=== PATIENT | female | born 1980 | race African-American/Black ===

== ENCOUNTER 2016-11-15 23:44 | Emergency (ER) | payer SELFPAY ==
[~2016-11-15] VITALS: Ht 165.1 cm; Wt 58.1 kg
[2016-11-15 23:55] VITALS: BP 125/55
--- NOTE | 2016-11-16 00:21 | PHYS DOC ---
Past Medical History Past Medical History: No Pertinent History Past Surgical History: No Surgical History Alcohol Use: None Drug Use: None Adult General Chief Complaint Chief Complaint: EYE PROBLEMS HPI HPI Patient is a 36 year old female who presents with painful swelling to right eyelid. Reports symptoms x 3 days, pain & swelling without vision changes, eye drainage, eye redness or itching. Denies fevers/chills. Doesn't wear glasses or contacts. Has been applying warm compresses. Tried using over the counter sty medication without relief. Review of Systems Review of Systems Constitutional: Denies fever or chills Eyes: Denies change in visual acuity, reports eyelid swelling. HENT: Denies nasal congestion or sore throat Respiratory: Denies cough Musculoskeletal: Denies back pain or joint pain Integument: Denies rash Neurologic: Denies headache Allergies Allergies Allergies Coded Allergies Type Severity Reaction Last Updated Verified No Known Drug Allergies 11/15/16 No Physical Exam Physical Exam Constitutional: Well developed, well nourished, no acute distress, non-toxic appearance. HENT: Normocephalic, atraumatic, bilateral external ears normal, oropharynx moist, nose normal. Eyes: PERRLA, EOMI, conjunctiva normal, no discharge. right eye sty is present , no periorbital erythema/warmth/swelling, no proptosis or pain with eye movements. Cardiovascular: no edema. Lungs & Thorax: no respiratory distress. Abdomen: nondistended. Skin: Warm, dry, no erythema, no rash. Extremities: No deformity Neurologic: Alert and oriented X 3 Current Patient Data Vital Signs Vital Signs Date Time Temp Pulse Resp B/P (MAP) Pulse Ox O2 Delivery O2 Flow Rate FiO2 11/15/16 23:55 98.1 64 16 98 Room Air 98.1 EKG EKG [] Radiology/Procedures Radiology/Procedures [] Course & Med Decision Making Course & Med Decision Making Pertinent Labs and Imaging studies reviewed. (See chart for details) The patient presents with right eye sty. No sign of periorbital or orbital cellulitis. Recommend continue warm compresses, take tylenol or ibuprofen for pain. Follow up as needed with Dr. Quintero in the eye clinic. Come back for loss of vision, sign of cellulitis, any otherwise worsening condition. Discharged home in stable condition. [] Dragon Disclaimer Dragon Disclaimer This electronic medical record was generated, in whole or in part, using a voice recognition dictation system. Departure Departure Impression: Primary Impression: Sty Disposition: 01 HOME, SELF-CARE Condition: STABLE Referrals: CHARITY SUTTON MD (PCP) Dahlia QUINTERO MD Patient Instructions: Sty Additional Instructions: You seen in the emergency department today for stye. Please continue to apply warm compresses several times daily. Take Tylenol or ibuprofen for pain. Follow- up as needed with Dr. Quintero in the eye clinic if not improving. Return to the emergency department for hot/red/swollen skin spreading outward from the eyelid, fevers, vision changes, any otherwise worsening condition. SOHA DILLARD MD November 16, 2016 00:21
== END 2016-11-16 00:36 | disposition home or self-care (01) ==
LOC: ER 23:44
DX: H00.013 Hordeolum externum right eye, unspecified eyelid (principal)
CPT/HCPCS: 99281

== ENCOUNTER 2016-12-02 00:23 | Emergency (ER) | payer OTHER ==
[~2016-12-02] VITALS: Ht 165.1 cm; Wt 58.1 kg
[2016-12-02 01:17] LABS: BILIRUBIN,URINE NEGATIVE (NEG); GLUCOSE,URINE NEGATIVE (NEG); NITRITE,URINE NEGATIVE (NEG); PROTEIN,URINE NEGATIVE (NEG-TRACE); UROBILINOGEN,URINE 0.2 mg/dL (0.2 mg/dL)
[2016-12-02 01:27] LABS: BACTERIA,URINE 0 /HPF (0-FEW); SQUAMOUS EPITHELIAL CELL,UR FEW /LPF
[2016-12-02] MEDS ORDERED: IV NORMAL SALINE 1000ML BAG 1,000 ML IV SCH (01:39)
[2016-12-02] MEDS ORDERED: MORPHINE SULFATE 4 MG/ML DISP.SYRIN. IV/SQ PRN (01:45)
--- NOTE | 2016-12-02 01:48 | PHYS DOC ---
Past Medical History Past Medical History: No Pertinent History Past Surgical History: No Surgical History Alcohol Use: None Drug Use: Marijuana Adult General Chief Complaint Chief Complaint: ABDOMINAL PAIN HPI HPI Patient is a 36 year old female who presents with complaint of abdominal pain. Patient has had symptoms for the past 2 days. Patient states that her pain is in her left upper quadrant and radiates towards her left flank. Patient also states that she has been having several episodes of vomiting over the past 2 days. Patient states that she is having difficulty keeping down both solids and liquids. Patient notes that she has had increase in urinary frequency. Patient denies any history of similar symptoms. Patient denies any known sick contacts. Patient has not had any associated fever with her symptoms. Patient rates her pain as 7 out of 10. Patient states that the symptoms seem to worsen when she tries to eat. Review of Systems Review of Systems Constitutional: Denies fever or chills [] Eyes: Denies change in visual acuity, redness, or eye pain [] HENT: Denies nasal congestion or sore throat [] Respiratory: Denies cough or shortness of breath [] Cardiovascular: No additional information not addressed in HPI [] GI: Abdominal pain, nausea, vomiting, denies bloody stools or diarrhea [] : Increased urinary frequency, denies dysuria or hematuria [] Musculoskeletal: Denies back pain or joint pain [] Integument: Denies rash or skin lesions [] Neurologic: Denies headache, focal weakness or sensory changes [] Endocrine: Denies polyuria or polydipsia [] Current Medications Current Medications Current Medications Medications (Trade) Dose Ordered Sig/Rupa Start Time Stop Time Status Last Admin Dose Admin Ceftriaxone Sodium 50 ml @ 100 mls/hr 1X ONCE 12/02/16 02:00 12/02/16 02:29 DC 12/02/16 02:06 100 MLS/HR Famotidine (Pepcid) 20 mg 1X ONCE 12/02/16 02:00 12/02/16 02:01 DC 12/02/16 02:06 20 MG Morphine Sulfate 4 mg PRN Q15MIN PRN 12/02/16 01:45 12/02/16 03:27 DC 12/02/16 02:06 4 MG Ondansetron HCl (Zofran) 4 mg 1X ONCE 12/02/16 02:00 12/02/16 02:01 DC 12/02/16 02:06 4 MG Potassium Chloride (Klor-Con) 20 meq STK-MED ONCE 12/02/16 03:17 12/02/16 03:18 DC Sodium Chloride 1,000 ml @ 1,000 mls/hr Q1H 12/02/16 01:39 12/02/16 02:38 DC 12/02/16 02:07 1,000 MLS/HR Allergies Allergies Allergies Coded Allergies Type Severity Reaction Last Updated Verified No Known Drug Allergies 11/15/16 No Physical Exam Physical Exam Constitutional: Alert, afebrile, appears in mild to moderate discomfort. [] HENT: Normocephalic, atraumatic, bilateral external ears normal, oropharynx moist, no oral exudates, nose normal. [] Eyes: PERRLA, EOMI, conjunctiva normal, no discharge. [] Neck: Normal range of motion, no tenderness, supple, no stridor. [] Cardiovascular:Heart rate regular rhythm, no murmur [] Lungs & Thorax: Bilateral breath sounds clear to auscultation [] Abdomen: Bowel sounds normal, soft, left upper quadrant tenderness to palpation , no masses, no pulsatile masses. [] Skin: Warm, dry, no erythema, no rash. [] Back: No midline tenderness, left CVA tenderness is present, no flank ecchymosis [] Extremities: No tenderness, no cyanosis, no clubbing, ROM intact, no edema. [] Neurologic: Alert and oriented X 3, normal motor function, normal sensory function, no focal deficits noted. [] Current Patient Data Vital Signs Vital Signs Date Time Temp Pulse Resp B/P (MAP) Pulse Ox O2 Delivery O2 Flow Rate FiO2 12/02/16 03:25 50 20 132/74 (93) 98 Room Air 12/02/16 01:10 98.2 98.2 Lab Values Laboratory Tests Test 12/02/16 00:14 12/02/16 01:10 POC Urine HCG, Qualitative Hcg negative (Negative) White Blood Count 11.9 x10^3/uL (4.0-11.0) H Red Blood Count 4.48 x10^6/uL (3.50-5.40) Hemoglobin 14.1 g/dL (12.0-15.5) Hematocrit 42.2 % (36.0-47.0) Mean Corpuscular Volume 94 fL (79-100) Mean Corpuscular Hemoglobin 32 pg (25-35) Mean Corpuscular Hemoglobin Concent 34 g/dL (31-37) Red Cell Distribution Width 12.3 % (11.5-14.5) Platelet Count 220 x10^3/uL (140-400) Neutrophils (%) (Auto) 71 % (31-73) Lymphocytes (%) (Auto) 19 % (24-48) L Monocytes (%) (Auto) 9 % (0-9) Eosinophils (%) (Auto) 0 % (0-3) Basophils (%) (Auto) 0 % (0-3) Neutrophils # (Auto) 8.5 x10^3uL (1.8-7.7) H Lymphocytes # (Auto) 2.3 x10^3/uL (1.0-4.8) Monocytes # (Auto) 1.1 x10^3/uL (0.0-1.1) Eosinophils # (Auto) 0.0 x10^3/uL (0.0-0.7) Basophils # (Auto) 0.1 x10^3/uL (0.0-0.2) Urine Collection Type Unknown Urine Color Yellow Urine Clarity Clear Urine pH 7.0 Urine Specific [place] <=1.005 Urine Protein Negative mg/dL (NEG-TRACE) Urine Glucose (UA) Negative mg/dL (NEG) Urine Ketones (Stick) Negative mg/dL (NEG) Urine Blood Large (NEG) Urine Nitrite Negative (NEG) Urine Bilirubin Negative (NEG) Urine Urobilinogen Dipstick 0.2 mg/dL (0.2 mg/dL) Urine Leukocyte Esterase Small (NEG) Urine RBC 6-10 /HPF (0-2) Urine WBC 11-20 /HPF (0-4) Urine Squamous Epithelial Cells Few /LPF Urine Bacteria 0 /HPF (0-FEW) Urine Mucus Slight /LPF Sodium Level 137 mmol/L (136-145) Potassium Level 3.1 mmol/L (3.5-5.1) L Chloride Level 103 mmol/L (98-107) Carbon Dioxide Level 24 mmol/L (21-32) Anion Gap 10 (6-14) Blood Urea Nitrogen 6 mg/dL (7-20) L Creatinine 0.8 mg/dL (0.6-1.0) Estimated GFR (Cockcroft-Gault) 98.2 BUN/Creatinine Ratio 8 (6-20) Glucose Level 102 mg/dL (70-99) H Calcium Level 9.3 mg/dL (8.5-10.1) Total Bilirubin 0.7 mg/dL (0.2-1.0) Aspartate Amino Transferase (AST) 14 U/L (15-37) L Alanine Aminotransferase (ALT) 18 U/L (14-59) Alkaline Phosphatase 54 U/L (46-116) Total Protein 7.7 g/dL (6.4-8.2) Albumin 3.9 g/dL (3.4-5.0) Albumin/Globulin Ratio 1.0 (1.0-1.7) Lipase 230 U/L (73-393) Laboratory Tests 12/02/16 01:10 Laboratory Tests 12/02/16 01:10 EKG EKG Not performed [] Radiology/Procedures Radiology/Procedures Not performed [] Course & Med Decision Making Course & Med Decision Making Pertinent Labs and Imaging studies reviewed. (See chart for details) Patient was treated with IV fluids, Zofran, Pepcid, fentanyl, GI cocktail. Patient found have evidence of urinary tract infection. Given patient's left flank pain, patient has clinical signs consistent with acute pyelonephritis. Patient started on IV Rocephin in the emergency department. On reevaluation, patient states her symptoms have significantly improved. Patient is able to tolerate oral intake without difficulty at this time. Patient will be treated with Vantin for 10 day course for treatment of acute pyelonephritis. Recommended follow-up in 3-4 days with patient's primary doctor. Advised return emergency department for any worsening symptoms. Patient voiced understanding and in agreement with treatment plan. Dragon Disclaimer Dragon Disclaimer This electronic medical record was generated, in whole or in part, using a voice recognition dictation system. Departure Departure Impression: Primary Impression: Acute pyelonephritis Disposition: 01 HOME, SELF-CARE Condition: IMPROVED Referrals: CHARITY SUTTON MD (PCP) Patient Instructions: Pyelonephritis, Adult Additional Instructions: Follow-up with your primary doctor in 3-4 days. Return to the emergency department for any worsening symptoms Scripts Hydrocodone/Apap 5-325 (NORCO 5-325 TABLET) 1 Each Tablet 1-2 TAB PO Q4-6HRS, #15 TAB Prov: HOWARD COON MD 12/02/16 Famotidine (PEPCID) 20 Mg Tablet 20 MG PO BID, #30 TAB Prov: HOWARD COON MD 12/02/16 Ondansetron (ZOFRAN ODT) 4 Mg Tab.rapdis 4 MG PO Q8HRS Y for NAUSEA/VOMITING, #20 TAB Prov: HOWARD COON MD 12/02/16 Cefpodoxime Proxetil (CEFPODOXIME PROXETIL) 200 Mg Tablet 1 TAB PO BID, #20 TAB Prov: HOWARD COON MD 12/02/16 HOWARD COON MD December 02, 2016 01:48
[2016-12-02 02:00] LABS: BASO # 0.1 x10^3/uL (0.0-0.2); BASO % 0 % (0-3); EOS % 0 % (0-3); HEMATOCRIT 42.2 % (36.0-47.0); HEMOGLOBIN 14.1 g/dL (12.0-15.5); LYMPH # 2.3 x10^3/uL (1.0-4.8); LYMPH % 19 % (24-48); MEAN CORPUSCULAR HEMOGLOBIN 32 pg (25-35); MEAN CORPUSCULAR HGB CONC 34 g/dL (31-37); MEAN CORPUSCULAR VOLUME 94 fL (79-100); MONO % 9 % (0-9); NEUT % 71 % (31-73); PLATELET COUNT 220 x10^3/uL (140-400); RED BLOOD COUNT 4.48 x10^6/uL (3.50-5.40); RED CELL DISTRIBUTION WIDTH 12.3 % (11.5-14.5); WHITE BLOOD COUNT 11.9 x10^3/uL (4.0-11.0)
[2016-12-02] MEDS ORDERED: FAMOTIDINE 20 MG/2 ML VIAL IVP ONE (02:00)
[2016-12-02] MEDS ORDERED: ONDANSETRON PF 4 MG/2 ML VIAL. IV ONE (02:00)
[2016-12-02 02:09] LABS: CALCIUM 9.3 mg/dL (8.5-10.1); CREATININE 0.8 mg/dL (0.6-1.0); GFR 98.2; POTASSIUM 3.1 mmol/L (3.5-5.1)
[2016-12-02 02:15] LABS: ALBUMIN 3.9 g/dL (3.4-5.0); TOTAL BILIRUBIN 0.7 mg/dL (0.2-1.0); TOTAL PROTEIN 7.7 g/dL (6.4-8.2)
[2016-12-02] MEDS ORDERED: HYDR-971 PO (03:00)
[2016-12-02] MEDS ORDERED: CEFP200T PO (03:00)
[2016-12-02] MEDS ORDERED: FAMO-63 PO (03:00)
[2016-12-02] MEDS ORDERED: ONDA4TAB10 PO (03:00)
[2016-12-02] MEDS ORDERED: POTASSIUM CHLORIDE 20 MEQ TABLET.ER. PO ONE (03:17)
[2016-12-02 03:25] VITALS: BP 132/74
== END 2016-12-02 03:27 | disposition home or self-care (01) ==
LOC: ER 00:23
DX: N10 Acute pyelonephritis (principal); F12.10 Cannabis abuse, uncomplicated
CPT/HCPCS: 36415; 80053; 81001; 83690; 84703; 85027; 87086; 96361; 96365; 96375; 99284; J0690; J2270; J2405; J7030; S0028; 81025

== ENCOUNTER 2016-12-02 17:59 | Emergency (ER) | payer OTHER ==
[2016-12-02 03:25] VITALS: BP 132/74
[~2016-12-02 17:59] MED LIST: CEFP200T PO; FAMO-63 PO; HYDR-971 PO; ONDA4TAB10 PO
== END 2016-12-02 18:10 | disposition left against medical advice (07) ==
LOC: ER 17:59
DX: O26.90 Pregnancy related conditions, unspecified, unspecified trimester (principal); Z53.21 Procedure and treatment not carried out due to patient leaving prior to being seen by health care provider

== ENCOUNTER 2016-12-10 20:37 | Emergency (ER) | payer OTHER ==
[2016-12-10 20:40] VITALS: BP 128/58
[2016-12-10 21:33] LABS: BILIRUBIN,URINE NEGATIVE (NEG); GLUCOSE,URINE NEGATIVE (NEG); NITRITE,URINE NEGATIVE (NEG); PH,URINE 7.5; PROTEIN,URINE 30 mg/dL (NEG-TRACE); UROBILINOGEN,URINE 0.2 mg/dL (0.2 mg/dL)
[2016-12-10 21:39] LABS: BACTERIA,URINE 0 /HPF (0-FEW); RBC,URINE OCC /HPF (0-2); SQUAMOUS EPITHELIAL CELL,UR OCC /LPF
[2016-12-10 21:47] LABS: CALCIUM 9.5 mg/dL (8.5-10.1); CREATININE 0.7 mg/dL (0.6-1.0); GFR 114.6; POTASSIUM 3.8 mmol/L (3.5-5.1)
--- NOTE | 2016-12-10 21:47 | PHYS DOC ---
Past Medical History Past Medical History: No Pertinent History, UTI Past Surgical History: No Surgical History Alcohol Use: None Drug Use: Marijuana Adult General Chief Complaint Chief Complaint: ABDOMINAL PAIN HPI HPI Patient is a 36 year old female who presents with nausea and vomiting followed by epigastric abdominal discomfort that started today. States her pain is worse around the times that her nausea is worse, but is otherwise constant and achy and burning. She has nonbloody nonbilious multiple times today. Symptoms started spontaneously. Denies food association. She denies diarrhea, bloody or dark stools. She has a normal bowel movement today. She denies back pain, dysuria, hematuria, fever or chills, chest pain, cough, dyspnea, sick contacts, recent travel. She was seen here approximately 1 week ago and treated for pyelonephritis. She did get better after the illness for a few days. Urine culture grew mixed urogenital gilma. Review of Systems Review of Systems Constitutional: Denies fever or chills [] Eyes: Denies change in visual acuity, redness, or eye pain [] HENT: Denies nasal congestion or sore throat [] Respiratory: Denies cough or shortness of breath [] Cardiovascular: No additional information not addressed in HPI [] GI: Denies bloody stools or diarrhea [] : Denies dysuria or hematuria [] Musculoskeletal: Denies back pain or joint pain [] Integument: Denies rash or skin lesions [] Neurologic: Denies headache, focal weakness or sensory changes [] Endocrine: Denies polyuria or polydipsia [] Current Medications Current Medications Current Medications Medications (Trade) Dose Ordered Sig/[facility] Start Time Stop Time Status Last Admin Dose Admin Famotidine (Pepcid) 20 mg 1X ONCE 12/10/16 22:00 12/10/16 22:01 DC 12/10/16 21:48 20 MG Fentanyl Citrate (Fentanyl 2ml Vial) 50 mcg 1X ONCE 12/10/16 22:00 12/10/16 22:01 DC 12/10/16 21:49 50 MCG Multi-Ingredient Mouthwash/Gargle (Gi Cocktail Single Dose) 15 ml 1X ONCE 12/10/16 22:00 12/10/16 22:01 DC 12/10/16 21:49 15 ML Ondansetron HCl (Zofran) 4 mg 1X ONCE 12/10/16 22:00 12/10/16 22:01 DC 12/10/16 21:47 4 MG Sodium Chloride 1,000 ml @ 1,000 mls/hr Q1H 12/10/16 22:00 12/10/16 22:59 12/10/16 21:47 1,000 MLS/HR Allergies Allergies Allergies Coded Allergies Type Severity Reaction Last Updated Verified No Known Drug Allergies 11/15/16 No Physical Exam Physical Exam Constitutional: Well developed, well nourished, no acute distress, non-toxic appearance. [] HENT: Normocephalic, atraumatic, bilateral external ears normal, oropharynx moist, nose normal. [] Eyes: PERRLA, EOMI. [] Neck: Normal range of motion, supple. [] Cardiovascular:Heart rate regular rhythm [] Lungs & Thorax: Bilateral breath sounds clear to auscultation [] Abdomen: Bowel sounds normal, soft, mild epigastric tenderness, no guarding or rebound. [] Skin: Warm, dry, no erythema, no rash. [] Back: No tenderness, no CVA tenderness. [] Extremities: No tenderness, ROM intact, no edema. [] Neurologic: Alert and oriented X 3, normal motor function, normal sensory function, no focal deficits noted. [] Psychologic: Affect normal, judgement normal, mood normal. [] Current Patient Data Vital Signs Vital Signs Date Time Temp Pulse Resp B/P (MAP) Pulse Ox O2 Delivery O2 Flow Rate FiO2 12/10/16 21:49 18 Room Air 12/10/16 20:40 97.6 48 128/58 (81) 100 97.6 Lab Values Laboratory Tests Test 12/10/16 20:40 12/10/16 20:50 Urine Color Yellow Urine Clarity Clear Urine pH 7.5 Urine Specific [place] 1.025 Urine Protein 30 mg/dL (NEG-TRACE) Urine Glucose (UA) Negative mg/dL (NEG) Urine Ketones (Stick) >=80 mg/dL (NEG) Urine Blood Negative (NEG) Urine Nitrite Negative (NEG) Urine Bilirubin Negative (NEG) Urine Urobilinogen Dipstick 0.2 mg/dL (0.2 mg/dL) Urine Leukocyte Esterase Moderate (NEG) Urine RBC Occ /HPF (0-2) Urine WBC 11-20 /HPF (0-4) Urine Squamous Epithelial Cells Occ /LPF Urine Transitional Epithelial Cells Occ /LPF Urine Bacteria 0 /HPF (0-FEW) Urine Mucus Slight /LPF Sodium Level 140 mmol/L (136-145) Potassium Level 3.8 mmol/L (3.5-5.1) Chloride Level 102 mmol/L (98-107) Carbon Dioxide Level 22 mmol/L (21-32) Anion Gap 16 (6-14) H Blood Urea Nitrogen 11 mg/dL (7-20) Creatinine 0.7 mg/dL (0.6-1.0) Estimated GFR (Cockcroft-Gault) 114.6 BUN/Creatinine Ratio 16 (6-20) Glucose Level 109 mg/dL (70-99) H Calcium Level 9.5 mg/dL (8.5-10.1) Total Bilirubin 0.6 mg/dL (0.2-1.0) Aspartate Amino Transferase (AST) 17 U/L (15-37) Alanine Aminotransferase (ALT) 20 U/L (14-59) Alkaline Phosphatase 57 U/L (46-116) Total Protein 7.9 g/dL (6.4-8.2) Albumin 4.1 g/dL (3.4-5.0) Albumin/Globulin Ratio 1.1 (1.0-1.7) Lipase 130 U/L (73-393) Laboratory Tests 12/10/16 20:50 Course & Med Decision Making Course & Med Decision Making Pertinent Labs and Imaging studies reviewed. (See chart for details) Other than ketonuria, laboratory evaluation is unremarkable. She is tolerating oral intake and her symptoms are improved. Return precautions given. She understands and agrees with plan. Dragon Disclaimer Dragon Disclaimer This electronic medical record was generated, in whole or in part, using a voice recognition dictation system. Departure Departure Impression: Primary Impression: Nausea and vomiting Additional Impression: Epigastric abdominal pain Disposition: 01 HOME, SELF-CARE Condition: STABLE Referrals: CHARITY SUTTON MD (PCP) Patient Instructions: Nausea and Vomiting, [id number] Additional Instructions: Take Zofran as needed for nausea. Take famotidine for likely gastritis. Follow- up with your primary care doctor within one week. Return for any concerns. Scripts Ondansetron (ZOFRAN ODT) 4 Mg Tab.rapdis 1 TAB SL Q8HRS Y for NAUSEA, #10 TAB Prov: Jv KIMBROUGH MD 12/10/16 Famotidine (FAMOTIDINE) 20 Mg Tablet 20 MG PO BID, #30 TAB Prov: Jv KIMBROUGH MD 12/10/16 Problem Qualifiers Primary Impression: Nausea and vomiting Vomiting type: unspecified Vomiting Intractability: non-intractable Qualified Codes: R11.2 - Nausea with vomiting, unspecified Jv KIMBROUGH MD Dec 10, 2016 21:47
[2016-12-10 21:52] LABS: ALBUMIN 4.1 g/dL (3.4-5.0); ALBUMIN/GLOBULIN RATIO 1.1 (1.0-1.7); TOTAL BILIRUBIN 0.6 mg/dL (0.2-1.0); TOTAL PROTEIN 7.9 g/dL (6.4-8.2)
[2016-12-10] MEDS ORDERED: IV NORMAL SALINE 1000ML BAG 1,000 ML IV SCH (22:00)
[2016-12-10] MEDS ORDERED: LIDO:MAALOX:DONNATAL 1:1:1 15 ML SINGLE DOSE SWSW ONE (22:00)
[2016-12-10] MEDS ORDERED: FAMOTIDINE 20 MG/2 ML VIAL IVP ONE (22:00)
[2016-12-10] MEDS ORDERED: ONDANSETRON PF 4 MG/2 ML VIAL. IV ONE (22:00)
[2016-12-10] MEDS ORDERED: fentaNYL PF VIAL 100 MCG/2 ML VIAL IV ONE (22:00)
[2016-12-10] MEDS ORDERED: FAMO20TA5 PO (22:16)
[2016-12-10] MEDS ORDERED: ONDA4TAB10 SL (22:16)
== END 2016-12-10 23:09 | disposition home or self-care (01) ==
LOC: ER 20:37
DX: R11.2 Nausea with vomiting, unspecified (principal); R10.13 Epigastric pain; F12.10 Cannabis abuse, uncomplicated; Z79.899 Other long term (current) drug therapy
CPT/HCPCS: 36415; 80053; 81001; 81025; 83690; 87086; 96361; 96374; 96375; 99285; J2405; J3010; J7030; S0028

== ENCOUNTER 2016-12-29 00:25 | Emergency (ER) | payer OTHER ==
[~2016-12-29] VITALS: Ht 165.1 cm; Wt 56.7 kg
[~2016-12-29 00:25] MED LIST changes: +FAMO20TA5 PO; +ONDA4TAB10 SL
[2016-12-29 01:21] VITALS: BP 115/61
[2016-12-29] MEDS ORDERED: HYDR-2758 PO (02:27)
[2016-12-29] MEDS ORDERED: PENI500T PO (02:27)
--- NOTE | 2016-12-29 02:28 | PHYS DOC ---
Past Medical History Past Medical History: No Pertinent History, UTI Past Surgical History: No Surgical History Alcohol Use: None Drug Use: Marijuana Adult General Chief Complaint Chief Complaint: DENTAL PROBLEM HPI HPI 36-year-old female presenting to the emergency department dental pain. Her pain is in her right back bottom tooth. It is been present for the past few days. She is taking Tylenol with mild relief. Currently her pain is moderate. It is nonradiating and without alleviating factors. Review of systems is negative for stridor difficulty swallowing. She denies fevers chills. She denies trismus. All other review of systems is negative unless otherwise noted in history of present illness. ED course: 36-year-old female presenting to the emergency department today with dental pain. No evidence of peritonsillar abscess. No evidence of deeper soft tissue infection. No stridor. Patient swallows secretions easily in the emergency department. She was discharged home with a small amount of hydrocodone and penicillin to follow-up with her dentist tomorrow morning for dental extraction. Review of Systems Review of Systems SEE ABOVE. Allergies Allergies Allergies Coded Allergies Type Severity Reaction Last Updated Verified No Known Drug Allergies 11/15/16 No Physical Exam Physical Exam Constitutional: Well developed, well nourished, no acute distress, non-toxic appearance. HENT: Normocephalic, atraumatic, bilateral external ears normal, oropharynx moist, no oral exudates, nose normal. [] Poor dentition. Cavity in the right back molar. No evidence of abscess formation. No peritonsillar abscess. Eyes: PERRLA, EOMI, conjunctiva normal, no discharge. [] Neck: Normal range of motion, no tenderness, supple, no stridor. [] Cardiovascular:Heart rate regular rhythm, no murmur Lungs & Thorax: Bilateral breath sounds clear to auscultation [] Abdomen: Bowel sounds normal, soft, no tenderness, no masses, no pulsatile masses. Skin: Warm, dry, no erythema, no rash. [] Back: No tenderness, no CVA tenderness. [] Extremities: No tenderness, no cyanosis, no clubbing, ROM intact, no edema. Neurologic: Alert and oriented X 3, normal motor function, normal sensory function, no focal deficits noted. [] Psychologic: Affect normal, judgement normal, mood normal. [] Current Patient Data Vital Signs Vital Signs Date Time Temp Pulse Resp B/P (MAP) Pulse Ox O2 Delivery O2 Flow Rate FiO2 12/29/16 01:21 98.8 64 16 100 Room Air 98.8 EKG EKG [] Radiology/Procedures Radiology/Procedures [] Course & Med Decision Making Course & Med Decision Making Pertinent Labs and Imaging studies reviewed. (See chart for details) [] Dragon Disclaimer Dragon Disclaimer This electronic medical record was generated, in whole or in part, using a voice recognition dictation system. Departure Departure Impression: Primary Impression: Pain, dental Disposition: HOME, SELF-CARE Condition: STABLE Referrals: CHARITY SUTTON MD (PCP) Patient Instructions: Dental Caries, Dental Pain Additional Instructions: Thank you for allowing us to participate in your care today. Followup with your dentist tomorrow. Call your Primary Doctor tomorrow and inform them of your visit today. If you do not have a primary care provider you can ask for a list of our primary care providers. Return to the emergency department you have any new or concerning findings. This should be evaluated by the primary care physician and any necessary consulting services for continued management within a few days after discharge. Return to emergency room if you have any new or concerning symptoms including but not limited to fever, chills, nausea, vomiting, intractable pain, any new rashes, chest pain, shortness of air, uncontrolled bleeding, difficulty breathing, and/or vision loss. You may have been prescribed medication that can change in your level of thinking and ability to operate machinery. These medications include hydrocodone and Ativan. Also, Benadryl has been known to do this as well. Be sure to check with your pharmacist and ask if the medications you've prescribed can affect your level of consciousness. I recommend not operating heavy machinery or driving while on medication such as these. Scripts Penicillin V Potassium (PENICILLIN V POTASSIUM) 500 Mg Tablet 1 TAB PO BID, #6 TAB Prov: RADHA HIGGINS MD 12/29/16 Hydrocodone Bit/Acetaminophen (HYDROCODONE-APAP 5-325 ) 1 Each Tablet 1 TAB PO PRN Q6HRS Y for PAIN, #3 TAB 0 Refills Be careful as this medication may cause you to be drowsy or tired. Do not drive on this medication. Prov: RADHA HIGGINS MD 12/29/16 RADHA HIGGINS MD Dec 29, 2016 02:28
== END 2016-12-29 02:34 | disposition home or self-care (01) ==
LOC: ER 00:25
DX: K08.89 Other specified disorders of teeth and supporting structures (principal); F12.10 Cannabis abuse, uncomplicated; Z87.440 Personal history of urinary (tract) infections
CPT/HCPCS: 99283

== ENCOUNTER 2017-01-30 00:54 | Emergency (ER) | payer OTHER ==
[~2017-01-30] VITALS: Ht 165.1 cm; Wt 56.7 kg
[~2017-01-30 00:54] MED LIST changes: +HYDR-2758 PO; +PENI500T PO
[2017-01-30] MEDS ORDERED: HYDROcodone/APAP 5/325MG 1 TAB TABLET PO ONE (01:15)
[2017-01-30 01:25] VITALS: BP 112/69
--- NOTE | 2017-01-30 05:51 | ED.ADGEN ---
Past Medical History Past Medical History: No Pertinent History, UTI Past Surgical History: No Surgical History Alcohol Use: None Drug Use: Marijuana Adult General Chief Complaint Chief Complaint: DENTAL PROBLEM HPI HPI Patient is a 36 year old left or posterior dental pain. no dysphonia dysphagia , trismus or drooling. Patient took Tylenol prior to ED arrival with limited relief. Review of Systems Review of Systems Review symptoms as per history of present illness. Current Medications Current Medications Current Medications Medications (Trade) Dose Ordered Sig/Rupa Start Time Stop Time Status Last Admin Dose Admin Acetaminophen/ Hydrocodone Bitart (Lortab 5/325) 1 tab 1X ONCE 01/30/17 01:15 01/30/17 01:16 DC 01/30/17 01:23 1 TAB Allergies Allergies Allergies Coded Allergies Type Severity Reaction Last Updated Verified No Known Drug Allergies 11/15/16 No Physical Exam Physical Exam Constitutional: Well developed, well nourished, no acute distress, non-toxic appearance. [] HENT: Normocephalic, atraumatic, bilateral external ears normal, oropharynx moist, Left lower posterior molar erosion. No submandibular TTP, no neck pain. No dysphonia, dysphagia, or trismuss.] Eyes: PERRLA, EOMI, conjunctiva normal, no discharge. [] Neck: Normal range of motion, no tenderness, supple, no stridor. [] Current Patient Data Vital Signs Vital Signs Date Time Temp Pulse Resp B/P (MAP) Pulse Ox O2 Delivery O2 Flow Rate FiO2 01/30/17 01:25 98.5 64 16 99 Room Air 98.5 EKG EKG [] Radiology/Procedures Radiology/Procedures [] Course & Med Decision Making Course & Med Decision Making Pertinent Labs and Imaging studies reviewed. (See chart for details) [No evidence of soft tissue abscess. Expedited dental follow-up recommended] Dragon Disclaimer Dragon Disclaimer This electronic medical record was generated, in whole or in part, using a voice recognition dictation system. LIDIA LAL DO Jan 30, 2017 05:51
== END 2017-01-30 01:31 | disposition home or self-care (01) ==
LOC: ER 00:54
DX: K08.89 Other specified disorders of teeth and supporting structures (principal); F12.10 Cannabis abuse, uncomplicated
CPT/HCPCS: 99283

== ENCOUNTER 2017-03-28 21:46 | Emergency (ER) | payer OTHER ==
[~2017-03-28] VITALS: Ht 165.1 cm; Wt 54.4 kg
[2017-03-28 22:05] VITALS: BP 154/113
[2017-03-28 22:24] LABS: BILIRUBIN,URINE NEGATIVE (NEG); GLUCOSE,URINE NEGATIVE (NEG); NITRITE,URINE NEGATIVE (NEG); PROTEIN,URINE NEGATIVE (NEG-TRACE); UROBILINOGEN,URINE 0.2 mg/dL (0.2 mg/dL)
[2017-03-28 22:36] LABS: BACTERIA,URINE 0 /HPF (0-FEW); RBC,URINE RARE /HPF (0-2); SQUAMOUS EPITHELIAL CELL,UR FEW /LPF; WBC,URINE OCC /HPF (0-4)
--- NOTE | 2017-03-28 23:35 | PHYS DOC ---
Past Medical History Past Medical History: Asthma, UTI Past Surgical History: No Surgical History Alcohol Use: Rarely Drug Use: Marijuana Adult General Chief Complaint Chief Complaint: ABDOMINAL PAIN HPI HPI Patient is a 36 year old female who complains of left upper quadrant abdominal pain for 2-3 days. She wonders if she might have a UTI because she thinks it felt like this the last time she had a UTI. She's had some mild nausea but no vomiting. She's recently been drinking protein shakes to try to gain weight. She has no chronic medical problems. Patient states that she has noticed increased urinary frequency but she does not have any pain with urination, "it just tingles". She denies any back pain or any suprapubic pain. Review of Systems Review of Systems Constitutional: She has felt warm and cold but not measured any temperatures GI: As in history of present illness : As in history of present illness Musculoskeletal: Denies back pain or joint pain [] Current Medications Current Medications Current Medications Medications (Trade) Dose Ordered Sig/Rupa Start Time Stop Time Status Last Admin Dose Admin Magnesium Citrate (Citroma) 296 ml 1X ONCE 03/28/17 23:45 03/28/17 23:46 DC 03/28/17 23:45 296 ML Allergies Allergies Allergies Coded Allergies Type Severity Reaction Last Updated Verified No Known Drug Allergies 11/15/16 No Physical Exam Physical Exam Constitutional: Well developed, well nourished, no acute distress, non-toxic appearance. Alert, mentating normally, warm and dry. HENT: Normocephalic, atraumatic, bilateral external ears normal, nose normal. [ ] Eyes: conjunctiva normal, no discharge. [] Neck: Normal range of motion, no stridor. [] Cardiovascular:Heart rate regular rhythm, no murmur [] Lungs & Thorax: Bilateral breath sounds clear to auscultation [] Abdomen: Soft, nondistended. Mild left upper quadrant tenderness to palpation. No suprapubic or lower abdominal tenderness. Skin: Warm, dry, no erythema, no rash. [] Back: No tenderness, no CVA tenderness. [] Extremities: No tenderness, no cyanosis, no clubbing, ROM intact, no edema. [] Neurologic: Alert and oriented X 3, normal motor function, no focal deficits noted. [] Current Patient Data Vital Signs Vital Signs Date Time Temp Pulse Resp B/P (MAP) Pulse Ox O2 Delivery O2 Flow Rate FiO2 03/28/17 22:05 98.1 65 16 154/113 (127) 99 Room Air 98.1 Lab Values Laboratory Tests Test 03/28/17 21:51 03/28/17 22:02 Urine Collection Type Unknown Urine Color Yellow Urine Clarity Clear Urine pH 7.0 Urine Specific [place] 1.010 Urine Protein Negative mg/dL (NEG-TRACE) Urine Glucose (UA) Negative mg/dL (NEG) Urine Ketones (Stick) Negative mg/dL (NEG) Urine Blood Negative (NEG) Urine Nitrite Negative (NEG) Urine Bilirubin Negative (NEG) Urine Urobilinogen Dipstick 0.2 mg/dL (0.2 mg/dL) Urine Leukocyte Esterase Negative (NEG) Urine RBC Rare /HPF (0-2) Urine WBC Occ /HPF (0-4) Urine Squamous Epithelial Cells Few /LPF Urine Bacteria 0 /HPF (0-FEW) POC Urine HCG, Qualitative Hcg negative (Negative) EKG EKG [] Radiology/Procedures Radiology/Procedures Abdomen flat and upright read by me. There is no evidence of free air or obstruction. There is a large amount of intestinal air present through the large intestine. There is, on the upright, a bubble of air in the splenic flexure of the colon. Nonspecific bowel gas pattern.[] Course & Med Decision Making Course & Med Decision Making Pertinent Labs and Imaging studies reviewed. (See chart for details) 36-year-old female presents with left upper quadrant abdominal pain. She is entirely nontoxic with few accompanying symptoms. Her urinalysis is negative for UTI. Urine test is negative. Due to the benign presentation and exam, I do suspect possible colon gas pains. I ordered a abdomen flat and upright which does show a lot of intestinal gas. I discussed this with the patient. We will try a dose of magnesium citrate and she will follow up with her primary care physician if this does not alleviate her symptoms. [] Dragon Disclaimer Dragon Disclaimer This electronic medical record was generated, in whole or in part, using a voice recognition dictation system. Departure Departure Impression: Primary Impression: Abdominal pain, left upper quadrant Additional Impression: Gas pain Disposition: 01 HOME, SELF-CARE Condition: STABLE Referrals: CHARITY SUTTON MD (PCP) Additional Instructions: As we discussed, your urinalysis was negative for urinary tract infection. X- ray shows a lot of gas in your large intestine (colon) and a pocket of gas in the left upper abdomen. I believe that is why you're having this pain. We will treat you with a laxative which should allow the intestinal gas to move through. If you continue to have problems, see your doctor. Problem Qualifiers MANNY DICKSON MD Mar 28, 2017 23:35
[2017-03-28] MEDS ORDERED: MAGNESIUM CITRATE 296 ML SOLUTION. PO ONE (23:45)
--- NOTE | 2017-03-29 09:06 | RAD ---
EXAM: Abdomen 2 views. HISTORY: Left upper quadrant pain. COMPARISON: None. FINDINGS: Supine and upright views of the abdomen are obtained. There is no pneumoperitoneum. There are no distended small bowel loops or significant air fluid levels. There is gas distally. Stool throughout the colon is consistent with constipation. A left renal calculus measures 3 mm. IMPRESSION: 1. Correlate for constipation. No evidence of obstruction. 2. 3 mm left renal calculus.
== END 2017-03-28 23:51 | disposition home or self-care (01) ==
LOC: ER 21:46
DX: R10.12 Left upper quadrant pain (principal); R14.1 Gas pain; J45.909 Unspecified asthma, uncomplicated; R35.0 Frequency of micturition; R11.0 Nausea; Z87.440 Personal history of urinary (tract) infections
CPT/HCPCS: 74020; 81001; 81025; 99285-25

== ENCOUNTER 2017-07-18 21:19 | Emergency (ER) | payer OTHER ==
[2017-07-18 21:53] LABS: URINE HCG POC HCG NEGATIVE (Negative)
[2017-07-18 22:05] LABS: BILIRUBIN,URINE NEGATIVE (NEG); CLARITY,URINE CLEAR; GLUCOSE,URINE NEGATIVE (NEG); NITRITE,URINE NEGATIVE (NEG); PH,URINE 6.5; PROTEIN,URINE NEGATIVE (NEG-TRACE); UROBILINOGEN,URINE 0.2 mg/dL (0.2 mg/dL)
[2017-07-18 22:23] LABS: BACTERIA,URINE 0 /HPF (0-FEW); COLOR,URINE COLORLESS; RBC,URINE 0 /HPF (0-2); SQUAMOUS EPITHELIAL CELL,UR OCC /LPF; WBC,URINE 0 /HPF (0-4)
[2017-07-18] MEDS: cefTRIAXone IM 250 MG VIAL IM (23:05)
[2017-07-18] MEDS: AZITHROMYCIN 250 MG TABLET. PO (23:05)
[2017-07-18] MEDS: metroNIDAZOLE 500 MG TABLET PO (23:05)
== END 2017-07-18 23:10 | disposition home or self-care (01) ==
LOC: ER 21:19
DX: R30.0 Dysuria (principal); Z20.2 Contact with and (suspected) exposure to infections with a predominantly sexual mode of transmission; J45.909 Unspecified asthma, uncomplicated; F12.10 Cannabis abuse, uncomplicated; Z87.440 Personal history of urinary (tract) infections
CPT/HCPCS: 81001; 81025; 87491; 87591; 96372; 99284-25; J0696; Q0144